=== PATIENT | female | born 1975 | race Caucasian/White ===

== ENCOUNTER 2021-03-08 13:04 | Emergency (ER) | payer BC ==
[2021-03-08 13:28] VITALS: RESP 16; TEMP 97.9
[2021-03-08 14:47] LABS: Basophils % (A) 0 %; Eosinophils # (A) 0.1 k/uL (0-0.7); Eosinophils % (A) 1 %; HCT 38.5 % (34.0-46.0); HGB 13.3 gm/dL (11.4-16.0); Lymphocytes # (A) 1.4 k/uL (1.0-4.8); Lymphocytes % (A) 10 %; MCH 29.7 pg (25.0-35.0); MCHC 34.6 g/dL (31.0-37.0); MCV 85.9 fL (80.0-100.0); Mean Platelet Volume 7.2; Monocytes # (A) 0.4 k/uL (0-1.0); Monocytes % (A) 3 %; Neutrophils # (A) 11.8 k/uL (1.3-7.7); Neutrophils % (A) 85 %; Platelet Count 445 k/uL (150-450); RBC 4.48 m/uL (3.80-5.40); RDW 12.7 % (11.5-15.5); WBC 13.9 k/uL (3.8-10.6)
--- NOTE | 2021-03-08 14:55 | XR ---
EXAMINATION TYPE: XR KUB DATE OF EXAM: 03/08/2021 2:47 PM CLINICAL HISTORY: Lower abdominal pain and pelvic pain TECHNIQUE: Single supine KUB image of the abdomen is obtained. COMPARISON: None. FINDINGS: Scattered gas is seen in non-distended small bowel loops. Gas and fecal material is seen in non-distended colon. There are multiple radiopaque densities overlying the right renal shadow measur ing up to 0.7 cm and a single radiopaque density overlying the left renal shadow measuring up to 0.3 cm. IMPRESSION: Overall nonobstructive bowel gas pattern. Findings concerning for bilateral nephrolithiasis.
[2021-03-08] MEDS ORDERED: KETOROLAC 15 MG/ML 1 ML VIAL IVP STA (14:59)
--- NOTE | 2021-03-08 14:59 | ED ---
Abdominal Pain HPI - General Chief Complaint: Abdominal Pain Stated Complaint: abd pain Source: patient, RN notes reviewed Mode of arrival: ambulatory Limitations: no limitations - History of Present Illness Initial Comments: 45-year-old female presents to the emergency room tearful with complaints of right lower quadrant pain for one day. Patient states that it is 7 out of 10 and feels like a dull ache. She had a ablation so does not have periods. Denies any chance of . She only has a history of hypertension, hypothyroid. She denies any hematuria or hematochezia or hematemesis. She has never had pain like this before. sHe denies any abdominal surgeries. She denies smoking on a daily basis. MD Complaint: abdominal pain -: days(s) (1) Location: RLQ Radiation: none Migration to: no migration Severity scale (1-10): 7 Quality: dull Consistency: constant Improves With: nothing Worsens With: nothing Associated Symptoms: nausea, vomiting - Related Data Previous Rx's Medication Instructions Recorded Ibuprofen [Motrin] 600 mg PO Q8HR PRN #30 tab 03/08/21 Tamsulosin [Flomax] 0.4 mg PO DAILY #7 cap 03/08/21 Allergies Allergy/AdvReac Type Severity Reaction Status Date / Time No Known Allergies Allergy Verified 03/08/21 13:28 Review of Systems ROS Statement: Those systems with pertinent positive or pertinent negative responses have been documented in the HPI. ROS Other: All systems not noted in ROS Statement are negative. Past Medical History Past Medical History: Hypertension, Thyroid Disorder History of Any Multi-Drug Resistant Organisms: None Reported Past Surgical History: Uterine Ablation Past Psychological History: No Psychological Hx Reported Smoking Status: Never smoker Past Alcohol Use History: None Reported Past Drug Use History: None Reported General Exam Limitations: no limitations General appearance: alert, in no apparent distress Head exam: Present: atraumatic, normocephalic, normal inspection Eye exam: Present: normal appearance, PERRL, EOMI. Absent: scleral icterus, conjunctival injection, periorbital swelling Pupils: Present: normal accommodation ENT exam: Present: normal exam, normal oropharynx, mucous membranes moist Neck exam: Present: normal inspection, full ROM. Absent: tenderness, meningismus, lymphadenopathy Respiratory exam: Present: normal lung sounds bilaterally. Absent: respiratory distress, wheezes, rales, rhonchi, stridor, chest wall tenderness, accessory muscle use, decreased breath sounds Cardiovascular Exam: Present: regular rate, normal rhythm, normal heart sounds. Absent: systolic murmur, diastolic murmur, rubs, gallop, clicks GI/Abdominal exam: Present: soft, normal bowel sounds. Absent: distended, ten derness, guarding, rebound, rigid, mass, pulsatile mass, hernia Extremities exam: Present: normal inspection, full ROM, normal capillary refill. Absent: tenderness, pedal edema, joint swelling, calf tenderness Back exam: Present: normal inspection, full ROM. Absent: tenderness, CVA tenderness (R), CVA tenderness (L), muscle spasm, paraspinal tenderness, vertebral tenderness, rash noted Neurological exam: Present: alert, oriented X3, CN II-XII intact Psychiatric exam: Present: normal affect, normal mood, other (tearful) Skin exam: Present: warm, dry, intact, normal color. Absent: rash, cyanosis, diaphoretic, erythema, petechiae, pallor, mottled Course Vital Signs 03/08/21 13:25 Temperature 97.9 F Pulse Rate 89 Respiratory 16 Rate Blood Pressure 138/84 O2 Sat by Pulse 98 Oximetry Medical Decision Making - Medical Decision Making Patient is a WBC count 14.9 and lactic acid 2.7 which she was given 1 L normal saline for. Patient was also given Toradol with pain relief is well-appearing. Her UA shows greater than 182 WBCs only [address] shows multiple right calculi at the proximal right ureter measuring +9 mm, 12 mm in the midpole. the re are at least 10 calcifications within the right kidney.mild right hydronephrosis, proximal right ureteral calcification suspected and may be partially obstructed.. 4 punctate calcifications within the left kidney. Spoke with Dr. Rivas from urology who suggested the patient follow-up with him in the office be prescribed Flomax and anti-inflammatories. Case also discussed with Dr. Malagon who was agreeable to this plan of care. - Lab Data Result diagrams: 03/08/21 14:29 03/08/21 14:29 Lab Results 03/08/21 03/08/21 03/08/21 Range/Units 14:29 14:29 14:29 WBC 13.9 H (3.8-10.6) k/uL RBC 4.48 (3.80-5.40) m/uL Hgb 13.3 (11.4-16.0) gm/dL Hct 38.5 (34.0-46.0) % MCV 85.9 (80.0-100.0) fL MCH 29.7 (25.0-35.0) pg MCHC 34.6 (31.0-37.0) g/dL RDW 12.7 (11.5-15.5) % Plt Count 445 (150-450) k/uL MPV 7.2 Neutrophils % 85 % Lymphocytes % 10 % Monocytes % 3 % Eosinophils % 1 % Basophils % 0 % Neutrophils # 11.8 H (1.3-7.7) k/uL Lymphocytes # 1.4 (1.0-4.8) k/uL Monocytes # 0.4 (0-1.0) k/uL Eosinophils # 0.1 (0-0.7) k/uL Basophils # 0.0 (0-0.2) k/uL Sodium 140 (137-145) mmol/L Potassium 4.0 (3.5-5.1) mmol/L Chloride 100 (98-107) mmol/L Carbon Dioxide 29 (22-30) mmol/L Anion Gap 11 mmol/L BUN 11 (7-17) mg/dL Creatinine 0.73 (0.52-1.04) mg/dL Est GFR (CKD-EPI)AfAm >90 (>60 ml/min/1.73 sqM) Est GFR (CKD-EPI)NonAf >90 (>60 ml/min/1.73 sqM) Glucose 118 H (74-99) mg/dL Plasma Lactic Acid Erasmo (0.7-2.0) mmol/L Calcium 9.9 (8.4-10.2) mg/dL Total Bilirubin 0.5 (0.2-1.3) mg/dL AST 27 (14-36) U/L ALT 26 (4-34) U/L Alkaline Phosphatase 90 (38-126) U/L Total Protein 8.4 H (6.3-8.2) g/dL Albumin 4.9 (3.5-5.0) g/dL Amylase 74 (30-110) U/L Lipase 51 (23-300) U/L Urine Color Yellow Urine Appearance Clear (Clear) Urine pH 5.5 (5.0-8.0) Ur Specific [place] 1.022 (1.001-1.035) Urine Protein Trace H (Negative) Urine Glucose (UA) Negative (Negative) Urine Ketones Negative (Negative) Urine Blood Large H (Negative) Urine Nitrite Negative (Negative) Urine Bilirubin Negative (Negative) Urine Urobilinogen <2.0 (<2.0) mg/dL Ur Leukocyte Esterase Negative (Negative) Urine RBC >182 H (0-5) /hpf Urine WBC 3 (0-5) /hpf Ur Squamous Epith Cells <1 (0-4) /hpf Urine Mucus Rare H (None) /hpf 03/08/21 Range/Units 14:29 WBC (3.8-10.6) k/uL RBC (3.80-5.40) m/uL Hgb (11.4-16.0) gm/dL Hct (34.0-46.0) % MCV (80.0-100.0) fL MCH (25.0-35.0) pg MCHC (31.0-37.0) g/dL RDW (11.5-15.5) % Plt Count (150-450) k/uL MPV Neutrophils % % Lymphocytes % % Monocytes % % Eosinophils % % Basophils % % Neutrophils # (1.3-7.7) k/uL Lymphocytes # (1.0-4.8) k/uL Monocytes # (0-1.0) k/uL Eosinophils # (0-0.7) k/uL Basophils # (0-0.2) k/uL Sodium (137-145) mmol/L Potassium (3.5-5.1) mmol/L Chloride (98-107) mmol/L Carbon Dioxide (22-30) mmol/L Anion Gap mmol/L BUN (7-17) mg/dL Creatinine (0.52-1.04) mg/dL Est GFR (CKD-EPI)AfAm (>60 ml/min/1.73 sqM) Est GFR (CKD-EPI)NonAf (>60 ml/min/1.73 sqM) Glucose (74-99) mg/dL Plasma Lactic Acid Erasmo 2.7 H* (0.7-2.0) mmol/L Calcium (8.4-10.2) mg/dL Total Bilirubin (0.2-1.3) mg/dL AST (14-36) U/L ALT (4-34) U/L Alkaline Phosphatase (38-126) U/L Total Protein (6.3-8.2) g/dL Albumin (3.5-5.0) g/dL Amylase (30-110) U/L Lipase (23-300) U/L Urine Color Urine Appearance (Clear) Urine pH (5.0-8.0) Ur Specific [place] (1.001-1.035) Urine Protein (Negative) Urine Glucose (UA) (Negative) Urine Ketones (Negative) Urine Blood (Negative) Urine Nitrite (Negative) Urine Bilirubin (Negative) Urine Urobilinogen (<2.0) mg/dL Ur Leukocyte Esterase (Negative) Urine RBC (0-5) /hpf Urine WBC (0-5) /hpf Ur Squamous Epith Cells (0-4) /hpf Urine Mucus (None) /hpf Disposition Clinical Impression: Kidney stone Disposition: HOME SELF-CARE Condition: Fair Instructions (If sedation given, give patient instructions): Kidney Stones (ED) Additional Instructions: Return to the emergency room if worsening pain, fever or inability to urinate. Take the medication as prescribed and follow-up with the urologist office tomorrow. Prescriptions: Tamsulosin [Flomax] 0.4 mg PO DAILY #7 cap Ibuprofen [Motrin] 600 mg PO Q8HR PRN #30 tab PRN Reason: Pain Is patient prescribed a controlled substance at d/c from ED?: No Referrals: Natalio Almendarez DO [Primary Care Provider] - 1-2 days Norris Rivas MD [STAFF PHYSICIAN] - 1-2 days Time of Disposition: 16:39
[2021-03-08] MEDS ORDERED: SODIUM CHLORIDE 0.9% 1,000 ML IV ONE (15:00)
[2021-03-08 15:16] LABS: ALT 26 U/L (4-34); AST 27 U/L (14-36); African American GFR (CKD) >90 (>60 ml/min/1.73 sqM); Albumin 4.9 g/dL (3.5-5.0); Alkaline Phosphatase 90 U/L (38-126); Amylase 74 U/L (30-110); Anion Gap 11 mmol/L; Appearance,Urine Clear (Clear); Bilirubin,Urine Negative (Negative); Blood Urea Nitrogen 11 mg/dL (7-17); Blood,Urine Large (Negative); Calcium 9.9 mg/dL (8.4-10.2); Carbon Dioxide 29 mmol/L (22-30); Chloride 100 mmol/L (98-107); Color,Urine Yellow; Glucose 118 mg/dL (74-99); Glucose,Urine (UA) Negative (Negative); Ketones,Urine Negative (Negative); Leukocyte Esterase,Urine Negative (Negative); Lipase 51 U/L (23-300); Mucus,Urine Rare /hpf; Nitrite,Urine Negative (Negative); Non-African American GFR(CKD) >90 (>60 ml/min/1.73 sqM); PH, Urine 5.5 (5.0-8.0); Protein,Urine Trace (Negative); RBC,Urine >182 /hpf (0-5); Sodium 140 mmol/L (137-145); Specific Gravity,Urine 1.022 (1.001-1.035); Squamous Epithelial Cell,Urine <1 /hpf (0-4); Total Bilirubin 0.5 mg/dL (0.2-1.3); Total Protein 8.4 g/dL (6.3-8.2); Urobilinogen,Urine <2.0 mg/dL (<2.0); WBC,Urine 3 /hpf (0-5)
--- NOTE | 2021-03-08 16:06 | CT ---
EXAMINATION TYPE: CT abdomen pelvis wo con DATE OF EXAM: 03/08/2021 COMPARISON: KUB same date HISTORY: Right flank pain. CT DLP: 600.4 mGycm Automated exposure control for dose reduction was used. TECHNIQUE: Helical acquisition of images from the lung bases through the pelvis. FINDINGS: LUNG BASES: No significant abnormality is appreciated. AORTA: No significant abnormality is appreciated. LIVER/GB: Liver shows low attenuation consistent with hepatic steatosis, liver is enlarged, focal spa ring present adjacent to the gallbladder. The gallbladder is unremarkable. PANCREAS: No significant abnormality is seen. SPLEEN: No significant abnormality is seen. ADRENALS: No significant abnormality is seen. KIDNEYS: Bilateral nephrolithiasis is noted, multiple calcifications are present within the right kid abbe. There is a calcification at the level the proximal right ureter measuring proximately 9 mm. Larg est calcification within the right kidney measures 12 mm in the midpole, at least 10 calcifications p resent within the right kidney, 4 punctate calcifications noted within the left kidney. There is mild right-sided hydronephrosis suspected. REPRODUCTIVE ORGANS: No significant abnormality is seen. URINARY BLADDER: No significant abnormality is seen. BOWEL: Diverticular changes associated with the sigmoid colon. No bowel obstruction evident. Cecum i s redundant and is present in the left lower quadrant, appendix not seen with certainty FREE AIR: No Free Air is visible. ASCITES: None visible. PELVIC ADENOPATHY: None visualized. RETROPERITONEAL ADENOPATHY: No Retroperitoneal Adenopathy visible. OSSEOUS STRUCTURES: Degenerative disc changes are present in the visualized spine. Is a slight spina l curvature. IMPRESSION: PROXIMAL RIGHT URETERAL CALCIFICATION IS SUSPECTED, MAY BE AT LEAST PARTIALLY OBSTRUCTIVE. Diverticul osis, degenerative disc disease
[2021-03-08 16:54] VITALS: BP 118/66; PULSE 77
== END 2021-03-08 16:54 | disposition home or self-care (01) ==
LOC: EC 13:04
DX: N13.2 Hydronephrosis with renal and ureteral calculous obstruction (principal); I10 Essential (primary) hypertension; E03.9 Hypothyroidism, unspecified
CPT/HCPCS: 36415; 74018; 74176; 80053; 81001; 82150; 83605; 83690; 85025; 96361; 96374; 99284

== ENCOUNTER → 2021-03-17 | Outpatient (CLI) | payer BC ==
--- NOTE | 2021-03-17 12:26 | XR ---
EXAMINATION TYPE: XR KUB DATE OF EXAM: 03/17/2021 10:39 AM CLINICAL HISTORY: Kidney stone on right side. TECHNIQUE: Single supine KUB image of the abdomen is obtained. COMPARISON: None. FINDINGS: Nonspecific, nonobstructive bowel gas pattern. There is a large amount of stool and gas see n scattered throughout the right hemicolon and within the rectum. There are several right renal calcu li at the upper, mid and lower pole of the right kidney. 4 mm calculus at the upper pole, 7 mm calcul us at the midpole, and 6 mm calculus at the lower pole. There is a right ureteral calculus measuring up to 9 mm at the L2-3 level. No definite left renal or ureteral calculi although stool and gas obscu re visualization. IMPRESSION: 1. Stool and gas are obscure visualization of the left kidney. 2. Multiple right renal calculi. 9 mm right midureteral calculus at the L2-3 level. Urologic evaluati on would BE helpful.
== END | disposition home or self-care (01) ==
LOC: RADXRMAIN 10:10
PROVIDERS: ATTEND Urology
DX: N20.0 Calculus of kidney (principal)
CPT/HCPCS: 74018

== ENCOUNTER → 2021-03-31 | Outpatient (CLI) | payer BC ==
--- NOTE | 2021-03-31 16:18 | XR ---
EXAMINATION TYPE: XR KUB DATE OF EXAM: 03/31/2021 10:30 AM CLINICAL HISTORY: Right kidney stone TECHNIQUE: Single supine KUB image of the abdomen is obtained. COMPARISON: 03/17/2021. FINDINGS: Scattered gas is seen in non-distended small bowel loops. Gas and fecal material is seen in non-distended colon. Fecal contents obscure the renal shadows. There are 2 radiopaque densities over lying the right renal shadow, most consistent with nephrolithiasis. IMPRESSION: Right nephrolithiasis. Overall nonobstructive bowel gas pattern.
== END | disposition home or self-care (01) ==
LOC: RADXRMAIN 10:15
PROVIDERS: ATTEND Urology
DX: N20.0 Calculus of kidney (principal)
CPT/HCPCS: 74018

== ENCOUNTER → 2021-04-27 | Outpatient (CLI) | payer BC ==
[2021-04-27 14:35] LABS: Basophils # (A) 0.1 k/uL (0-0.2); Basophils % (A) 1 %; Eosinophils # (A) 0.7 k/uL (0-0.7); Eosinophils % (A) 7 %; HCT 39.1 % (34.0-46.0); HGB 13.3 gm/dL (11.4-16.0); Lymphocytes # (A) 1.7 k/uL (1.0-4.8); Lymphocytes % (A) 17 %; MCH 30.7 pg (25.0-35.0); MCV 90.2 fL (80.0-100.0); Mean Platelet Volume 7.5; Monocytes # (A) 0.5 k/uL (0-1.0); Monocytes % (A) 5 %; Neutrophils % (A) 70 %; Platelet Count 442 k/uL (150-450); RBC 4.33 m/uL (3.80-5.40); RDW 13.5 % (11.5-15.5); WBC 10.1 k/uL (3.8-10.6)
[2021-04-27 14:52] LABS: African American GFR (CKD) >90 (>60 ml/min/1.73 sqM); Anion Gap 13 mmol/L; Blood Urea Nitrogen 12 mg/dL (7-17); Calcium 10.5 mg/dL (8.4-10.2); Carbon Dioxide 26 mmol/L (22-30); Chloride 100 mmol/L (98-107); Glucose 102 mg/dL (74-99); Non-African American GFR(CKD) >90 (>60 ml/min/1.73 sqM); Potassium 4.2 mmol/L (3.5-5.1); Sodium 139 mmol/L (137-145)
== END | disposition home or self-care (01) ==
LOC: LABPAT 12:55
PROVIDERS: ATTEND Urology
DX: Z01.812 Encounter for preprocedural laboratory examination (principal); N20.0 Calculus of kidney
CPT/HCPCS: 36415; 80048; 85025

== ENCOUNTER 2021-05-03 06:12 | Day surgery (SDC) | payer BC ==
[2021-04-29 11:59] VITALS: BMI 28.1
--- NOTE | 2021-05-02 09:03 | P.GSHP ---
History of Present Illness H&P Date: 05/02/21 45 yo female with painful kidney stones right SHe comes for eswl right Past Medical History Past Medical History: Hypertension, Thyroid Disorder Additional Past Medical History / Comment(s): KIDNEY STONES. SEASONAL ALLERGIES History of Any Multi-Drug Resistant Organisms: None Reported Past Surgical History: Uterine Ablation Additional Past Surgical History / Comment(s): LITHOTRIPSY Past Anesthesia/Blood Transfusion Reactions: No Reported Reaction Smoking Status: Never smoker - Past Family History Mother Family Medical History: No Reported History Medications and Allergies Home Medications Medication Instructions Recorded Confirmed Type Cetirizine HCl [Zyrtec] 10 mg PO DAILY 04/29/21 04/29/21 History Levothyroxine Sodium [Levoxyl] 88 mcg PO DAILY 04/29/21 04/29/21 History Losartan/Hydrochlorothiazide 1 tab PO DAILY 04/29/21 04/29/21 History [Losartan-Hctz 100-25 mg Tab] amLODIPine [Norvasc] 5 mg PO DAILY 04/29/21 04/29/21 History diphenhydrAMINE [Benadryl] 25 mg PO TID PRN 04/29/21 04/29/21 History Allergies Allergy/AdvReac Type Severity Reaction Status Date / Time No Known Allergies Allergy Verified 04/29/21 11:51 Surgical - Exam - General well developed, no distress - Eyes PERRL - ENT no hearing loss - Neck no masses - Respiratory normal expansion, normal respiratory effort - Cardiovascular Rhythm: regular - Abdomen Abdomen: soft, non tender - Integumentary no rash, no growths - Neurologic normal coordination, normal sensation - Musculoskeletal normal gait, normal posture - Psychiatric oriented to time, oriented to person, oriented to place, speech is normal, memory intact Results - Imaging Abdominal x-ray: report reviewed, image reviewed CT scan - abdomen: report reviewed, image reviewed CT scan - pelvis: report reviewed, image reviewed Assessment and Plan Assessment: Impression Right dedrick stones, painful Plan: eswl right
[~2021-05-03 06:12] MED LIST: DEXAMETHASONE SOD PHOSPHATE 4 MG/ML 1 ML VIAL IV ONE; LACTATED RINGERS 1,000 ML IV SCH; LIDOCAINE 1% (10MG/ML) FOR IV START INTRADERMA PRN; ONDANSETRON 4 MG/2 ML VIAL IVP ONE
[2021-05-03 06:46] VITALS: TEMP 97.9
--- NOTE | 2021-05-03 06:48 | XR ---
EXAMINATION TYPE: XR KUB DATE OF EXAM: 05/03/2021 6:32 AM CLINICAL HISTORY: Right-sided kidney stones. TECHNIQUE: Two supine KUB images of the abdomen are obtained. COMPARISON: Abdominal x-ray March 31, 2021 and older studies including CT abdomen and pelvis March 08, 2021. FINDINGS: There is roughly 4 mm left renal calculus upper pole level projecting over the 12th rib red emonstrated. A few smaller left renal calculi less well seen on plain film versus CT. Redemonstration of roughly 6 scattered right renal calculi including dominant 6 mm stone midpole level projecting ov er right 12th rib. Cluster of calculi lower pole level measuring near 6 mm redemonstrated. Overall nonobstructive bowel gas pattern. Underlying scoliotic curvature redemonstrated. IMPRESSION: As above. Persistent right greater than left nephrolithiasis.
[2021-05-03 07:12] VITALS: RESP 16
[2021-05-03] MEDS ORDERED: KETAMINE 10 MG/ML 20 ML VIAL ONE (07:35)
[2021-05-03] MEDS ORDERED: LIDOCAINE 1% INJ 10MG/ML (20 ML MDV) ONE (07:35)
[2021-05-03] MEDS ORDERED: MIDAZOLAM 2 MG/2 ML VIAL ONE (07:35)
[2021-05-03] MEDS ORDERED: fentaNYL (PF) 50 MCG/ML 2 ML AMP ONE (07:35)
[2021-05-03] MEDS ORDERED: PROPOFOL 10 MG/ML 20 ML VIAL IV ONE (07:35)
[2021-05-03] MEDS ORDERED: LACTATED RINGERS 1,000 ML IV ONE (08:27)
--- NOTE | 2021-05-03 08:34 | P.OP ---
Date of Procedure: 05/03/21 Preoperative Diagnosis: right renal calculi Postoperative Diagnosis: same Procedure(s) Performed: Right ESWL Implants: none Anesthesia: MAC Surgeon: Conrad Alicia Estimated Blood Loss (ml): 0 Pathology: none sent Condition: stable Disposition: PACU Indications for Procedure: This is a 45 yo female with hx of 6 mm right sided stone within the renal pelvis and multiple non-obstructing stone within the lower pole. option of Right ESWL was discussed with her. Risks and benefit were discussed with her.She agreed to proceed with right ESWL Operative Findings: right sided renal stone in the renal pelvis, and multiple smaller stone in the lower pole of the right kidney Description of Procedure: The patient was taken to the operating room and placed on the [employer] II lithotripter in the supine position. The calculus was seen on biplanar fluoroscopy. . Once the patient was properly positioned and sedated, lithotripsy was performed. The energy level was gradually increased per protocol, to an energy level of 4. A total of 2500 shocks were given at a rate of 80 shocks per minute. Fluoroscopy was utilized at a minimum to ensure proper positioning and determine the treatment status. The calculus changed in appearance, there was good fragmentation. All 2500 shocks were required to obtain good fragmentation of the renal pelvis stone, thus no shocks could be administered to the lower pole stone. The patient tolerated the procedure well was taken to the recovery room in stable condition. Instructions were given to strain the urine, and the patient will follow-up within one week.
[2021-05-03 08:59] VITALS: BP 113/76; PULSE 84
== END 2021-05-03 09:47 | disposition home or self-care (01) ==
LOC: ORWHC2ENDO 06:12
PROVIDERS: ATTEND Urology
DX: N20.0 Calculus of kidney (principal); I10 Essential (primary) hypertension; E07.9 Disorder of thyroid, unspecified
CPT/HCPCS: 50590; 81025; 74018; J2250; J1100; J2405; J2001; J3010; J2704

== ENCOUNTER → 2021-05-10 | Outpatient (CLI) | payer BC ==
--- NOTE | 2021-05-10 10:44 | XR ---
EXAMINATION TYPE: XR KUB DATE OF EXAM: 05/10/2021 HISTORY: Pain Comparison: 05/03/2021 Single KUB is submitted for interpretation. Findings: Right renal calculi: Mid pole calculus is no longer visualized. 2 or 3 small calculi seen overlying t he lower pole of the right kidney measuring up to 4.3 mm. Right ureteral calculi: None Visualized. Left renal calculi: None Visualized. Left ureteral calculi: None Visualized. Pelvic calcifications: None Visualized. Bowel gas pattern is unremarkable. No free air. No mass effects. IMPRESSION: 1. Right-sided Mid pole calculus is no longer visualized. 2 or 3 small calculi seen overlying the low er pole of the right kidney measuring up to 4.3 mm.
== END | disposition home or self-care (01) ==
LOC: RADXRMAIN 10:17
PROVIDERS: ATTEND Urology
DX: N20.0 Calculus of kidney (principal)
CPT/HCPCS: 74018

== ENCOUNTER → 2021-06-02 | Outpatient (CLI) | payer BC ==
--- NOTE | 2021-06-02 16:02 | XR ---
EXAMINATION TYPE: XR KUB DATE OF EXAM: 06/02/2021 COMPARISON: 05/10/2021 INDICATION: Follow-up lithotripsy TECHNIQUE: Single view abdomen spine view FINDINGS: There is a normal bowel gas pattern. Fecal debris soothe the colon Psoas margins are normal. No organomegaly is present. There is a 0.5 cm calcification at the superior pole right kidney. Smaller adjacent calcifications pr esent. Findings appear stable. IMPRESSION: 1. Stable appearing desiccation upper pole right kidney
== END | disposition home or self-care (01) ==
LOC: RADXRMAIN 15:39
PROVIDERS: ATTEND Urology
DX: Z48.816 Encounter for surgical aftercare following surgery on the genitourinary system (principal); N28.89 Other specified disorders of kidney and ureter
CPT/HCPCS: 74018

== ENCOUNTER → 2022-01-06 | Outpatient (CLI) | payer BC ==
--- NOTE | 2022-01-06 08:00 | XR ---
KUB HISTORY: N 20.0 Frontal KUB submitted on 2 images and correlated to prior exam 06/02/2021, CT dated 03/08/2021 2-3 calcifications are superimposed over the lower pole the right kidney, 2 of which measuring approx imately 5 mm, third is likely smaller. Suspect smaller calcifications are present within the left kid abbe, possibly 3-4 calcifications present. There is retained fecal debris present. Spinal curvature is noted. IMPRESSION: Bilateral nephrolithiasis
== END | disposition home or self-care (01) ==
LOC: RADXRMAIN 07:20
PROVIDERS: ATTEND Urology
DX: N20.0 Calculus of kidney (principal)
CPT/HCPCS: 74018